=== PATIENT | female | born 1975 | race Hispanic/Latino ===

== ENCOUNTER → 2019-07-07 | Outpatient (CLI) | payer BC | END | disposition home or self-care (01) | LOC: RAH 16:23 | PROVIDERS: ATTEND Urology | DX: N20.2 Calculus of kidney with calculus of ureter (principal) | CPT/HCPCS: 74018; 76100 ==

== ENCOUNTER → 2019-12-28 | Outpatient (CLI) | payer BC | END | disposition home or self-care (01) | LOC: RAH 12:10 | PROVIDERS: ATTEND Urology | DX: N20.0 Calculus of kidney (principal); I87.8 Other specified disorders of veins | CPT/HCPCS: 74018; 76100 ==

== ENCOUNTER → 2020-09-25 | Outpatient (CLI) | payer BC | END | disposition home or self-care (01) | LOC: RAH 10:59 | PROVIDERS: ATTEND Urology | DX: N20.2 Calculus of kidney with calculus of ureter (principal); I87.8 Other specified disorders of veins | CPT/HCPCS: 74018; 76100 ==